=== PATIENT | male | born 1975 | race Two or more races ===

== ENCOUNTER → 2025-02-14 | Outpatient (CLI) | payer MEDICAID, SELFPAY ==
--- NOTE | 2025-02-14 16:04 | XR_ITS ---
Examination: Foot, left, 3 views Technique: AP, oblique, lateral views foot, 3 views Date and time of exam: February 14, 2025 1609 hrs. Indications: Left leg swelling and pain beginning 2 days ago Findings: Mild narrowing first metatarsophalangeal joint 4 mm plantar bony calcaneal spur Soft tissue swelling dorsum foot Pes planus No acute fracture Impression: No acute fracture Soft tissue swelling dorsum of the foot 4 mm plantar bony calcaneal spur
== END | disposition home or self-care (01) ==
PROVIDERS: PCP Internal Medicine
DX: M77.32 Calcaneal spur, left foot (principal); M25.475 Effusion, left foot
CPT/HCPCS: 73630